=== PATIENT | female | born 1965 ===

== ENCOUNTER 2021-06-16 13:10 | Emergency (ER) | payer MEDICAID ==
--- NOTE | 2021-06-16 13:31 | Emergency Department Report ---
ED ENT HPI - General Chief complaint: Nosebleed Stated complaint: NOSE BLEED Time Seen by Provider: 06/16/21 13:27 Source: patient, EMS Mode of arrival: Stretcher Limitations: No Limitations - History of Present Illness Initial comments: Patient is 56 years old female with history of COPD, congestive heart failure and hypertension. Patient stated that she is on warfarin but she does not know the reason for that. Patient brought to the emergency room via EMS from home for evaluation of nosebleed that started this morning. Bleeding is from the left nostril. Patient stated that she has similar episode 2 weeks ago and she was cauterized. Patient denied any other bleed. She denied any hemoptysis, hematuria, hematemesis, hematochezia or melena. complaint: epistaxis -: Sudden, This morning Location: nose Consistency: intermittent - Related Data Home Medications Medication Instructions Recorded Confirmed Last Taken Warfarin 10 mg PO QHS 06/16/21 06/16/21 06/15/21 Allergies Allergy/AdvReac Type Severity Reaction Status Date / Time levofloxacin [From Levaquin] Allergy Swelling Verified 06/16/21 13:27 ED Dental HPI - General Chief complaint: Nosebleed Stated complaint: NOSE BLEED Time Seen by Provider: 06/16/21 13:27 Source: patient, EMS Mode of arrival: Stretcher Limitations: No Limitations - Related Data Home Medications Medication Instructions Recorded Confirmed Last Taken Warfarin 10 mg PO QHS 06/16/21 06/16/21 06/15/21 Allergies Allergy/AdvReac Type Severity Reaction Status Date / Time levofloxacin [From Levaquin] Allergy Swelling Verified 06/16/21 13:27 ED Review of Systems ROS: Stated complaint: NOSE BLEED Other details as noted in HPI Comment: All other systems reviewed and negative Constitutional: denies: chills ENT: epistaxis Respiratory: denies: cough, shortness of breath, SOB with exertion Cardiovascular: denies: chest pain Gastrointestinal: denies: abdominal pain, nausea, vomiting Musculoskeletal: denies: back pain Neurological: denies: headache, weakness, numbness, paresthesias, confusion ED Past Medical Hx - Medications Home Medications: Home Medications Medication Instructions Recorded Confirmed Last Taken Type Warfarin 10 mg PO QHS 06/16/21 06/16/21 06/15/21 History ED Physical Exam - General Limitations: No Limitations General appearance: alert, in no apparent distress - Head Head exam: Present: atraumatic, normocephalic, normal inspection - ENT ENT exam: Present: other (Active left nostril bleeding.) - Neck Neck exam: Present: normal inspection, tenderness, full ROM. Absent: meningismus - Respiratory Respiratory exam: Present: normal lung sounds bilaterally - Cardiovascular Cardiovascular Exam: Present: regular rate, normal rhythm, normal heart sounds - GI/Abdominal GI/Abdominal exam: Present: soft, rigid, normal bowel sounds. Absent: distended, tenderness, guarding, rebound - Neurological Exam Neurological exam: Present: alert, oriented X3, CN II-XII intact - Psychiatric Psychiatric exam: Present: normal mood - Skin Skin exam: Present: warm ED Course Vital Signs 06/16/21 06/16/21 06/16/21 13:20 13:31 15:20 Pulse Rate 82 79 81 Respiratory 15 17 19 Rate Blood Pressure 140/74 Blood Pressure 140/74 174/84 [Left] O2 Sat by Pulse 93 93 94 Oximetry 06/16/21 17:20 Pulse Rate 81 Respiratory 20 Rate Blood Pressure Blood Pressure 153/94 [Left] O2 Sat by Pulse 95 Oximetry ED Medical Decision Making - Lab Data Result diagrams: 06/16/21 13:59 06/16/21 13:59 - Medical Decision Making Patient is 56 years old female with history of COPD, congestive heart failure and hypertension. Patient stated that she is on warfarin but she does not know the reason for that. Patient brought to the emergency room via EMS from home for evaluation of nosebleed that started this morning. Bleeding is from the left nostril. Patient stated that she has similar episode 2 weeks ago and she was cauterized. Patient denied any other bleed. She denied any hemoptysis, hematuria, hematemesis, hematochezia or melena. Rhinocort placed to the left nostril. Bleeding stopped. Labs reviewed and show ed an INR of 4.4. Patient received vitamin K 10mg subcu. Patient also advised to hold Coumadin today and tomorrow and to resume her dose after tomorrow. Patient advised to follow-up with her primary care physician in the next 2 to 3 days and to return to the ER if she develop any new symptoms. Critical care attestation.: If time is entered above; I have spent that time in minutes in the direct care of this critically ill patient, excluding procedure time. ED Disposition Clinical Impression: Epistaxis, Coumadin toxicity Disposition: 01 HOME / SELF CARE / HOMELESS Is pt being admited?: No Condition: Stable Instructions: Nosebleed, Adult, Bleeding Precautions When on Anticoagulant Therapy, Pediatric Referrals: PRIMARY CARE,MD [Primary Care Provider] - 3-5 Days
[2021-06-16] MEDS ORDERED: MORPHINE 4 MG/1 ML INJ ONE (13:50)
[2021-06-16 15:33] LABS: Basophils % (Auto) 0.6 % (0.0-1.8); Eosinophils % (Auto) 4.2 % (0.0-4.3); Monocytes % (Auto) 6.9 % (0.0-7.3)
[2021-06-16 15:42] LABS: INR 4.46 (0.87-1.13)
[2021-06-16 15:47] LABS: Hematocrit 33.5 % (30.3-42.9); Hemoglobin 10.5 gm/dl (10.1-14.3); Mean Corpuscular HGB Conc 31 % (30-34); Mean Corpuscular Volume 86 fl (79-97); Platelet Count 265 K/mm3 (140-440); Red Blood Count 3.88 M/mm3 (3.65-5.03); Red Cell Distribution Width 15.7 % (13.2-15.2)
[2021-06-16 15:48] LABS: Eosinophils # (Auto) 0.4 K/mm3 (0.0-0.4); Lymphocytes # (Auto) 1.7 K/mm3 (1.2-5.4); Monocytes # (Auto) 0.7 K/mm3 (0.0-0.8)
[2021-06-16 15:51] LABS: Alanine Aminotransferase 18 units/L (7-56); Albumin 3.8 g/dL (3.9-5); BUN/Creatinine Ratio 11; Blood Urea Nitrogen 10 mg/dL (7-17); Calcium 8.9 mg/dL (8.4-10.2); Hemolysis Index 4
[2021-06-16 16:00] LABS: Partial Thromboplastin Time 60.3 Sec. (24.2-36.6)
[2021-06-16] MEDS ORDERED: PHYTONADIONE 10 MG/1 ML (ADULT ONLY)*INJECTION SUB-Q ONE (16:34)
[2021-06-16 17:23] VITALS: BP 153/94
== END 2021-06-16 19:07 | disposition home or self-care (01) ==
LOC: ED 13:10
DX: R04.0 Epistaxis (principal); T45.515A Adverse effect of anticoagulants, initial encounter; I11.0 Hypertensive heart disease with heart failure; I50.9 Heart failure, unspecified; J44.9 Chronic obstructive pulmonary disease, unspecified; Z88.1 Allergy status to other antibiotic agents; Z79.01 Long term (current) use of anticoagulants; Y92.89 Other specified places as the place of occurrence of the external cause
CPT/HCPCS: 36415; 80053; 85025; 85610; 85730; 96372; 99284; J2270; J3430